=== PATIENT | male | born 1990 | race Caucasian/White ===

== ENCOUNTER 2019-03-10 11:13 | Emergency (ER) | payer OTHER ==
[~2019-03-10] VITALS: Ht 172.7 cm; Wt 92.0 kg
[~2019-03-10 11:13] MED LIST: SULF1TAB31 PO
[2019-03-10 12:05] VITALS: Ht 172.7 cm; Wt 92.0 kg
[2019-03-10] MEDS ORDERED: VANCOMYCIN 1 GM (PMX) 250 ML IVPB ONE (13:30)
[2019-03-10] MEDS ORDERED: CEFTRIAXONE 1 GM/50 ML (PMX) 50 ML IVPB ONE (13:30)
[2019-03-10] MEDS ORDERED: SULF1TAB31 PO (14:02)
[2019-03-10] MEDS ORDERED: CEPH-443 PO (14:02)
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
[2019-03-10 16:27] VITALS: BP 116/56; PULSE 82; RESP 18
== END 2019-03-10 16:28 | disposition home or self-care (01) ==
LOC: FTE 11:13
DX: L03.115 Cellulitis of right lower limb (principal)
CPT/HCPCS: 80053; 85025; 96374; 96375; J0696; J3370; Z7502

== ENCOUNTER 2019-03-14 15:50 | Emergency (ER) | payer OTHER ==
[~2019-03-14] VITALS: Ht 177.8 cm; Wt 88.2 kg
[~2019-03-14 15:50] MED LIST changes: +CEPH-443 PO
[2019-03-14 16:06] VITALS: BP 117/59; PULSE 95; RESP 18; Ht 177.8 cm; Wt 88.2 kg
[2019-03-14] MEDS ORDERED: NAPR-985 PO (18:11)
[2019-03-14] MEDS: KETOROLAC 30 MG INJ IM STA ×2 (18:21→18:28)
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
== END 2019-03-14 18:38 | disposition home or self-care (01) ==
LOC: FTE 15:50
DX: R22.43 Localized swelling, mass and lump, lower limb, bilateral (principal)
CPT/HCPCS: 99282; J1885

== ENCOUNTER 2019-04-07 23:11 | Emergency (ER) | payer OTHER ==
[~2019-04-07] VITALS: Ht 177.8 cm; Wt 90.1 kg
[~2019-04-07 23:11] MED LIST changes: +NAPR-985 PO
[2019-04-07 23:13] VITALS: Ht 177.8 cm; Wt 90.1 kg
[2019-04-08] MEDS ORDERED: SULF1TAB31 PO (03:44)
[2019-04-08] MEDS ORDERED: CLIN300C10 PO (03:44)
[2019-04-08 03:58] VITALS: BP 119/65; PULSE 101; RESP 18
[2019-04-08] MEDS ORDERED: LIDOCAINE 1% (MPF) 5 ML VIAL INFIL ONE (04:00)
[2019-04-08] MEDS ORDERED: CEFTRIAXONE 1 GM INJ IM ONE (04:00)
--- NOTE | 2019-04-08 07:03 | ERD ---
ER Documentation Chief Complaint Chief Complaint RIGHT LEG CELLULITITS; ATB FINISHED HPI 28-year-old male with history of cellulitis and heroin abuse presents to the ED complaining of bilateral lower extremity swelling and redness. Patient states he was seen here on March 10, 2019 for the same complaints. He was started on outpatient antibiotics which he finished. He states his symptoms improved but he started to have swelling and redness again 4 days ago. He denies any associated fevers or chills. Denies any numbness or tingling of his lower extremities. No trauma. No other complaints. ROS All systems reviewed and are negative except as per history of present illness. Medications Home Meds Active Scripts Sulfamethoxazole/Trimethoprim* (Bactrim Ds* Tablet) 1 Each Tablet, 1 TAB PO BID, #14 TAB Prov:BARIIGRSHINANARMANI-C 04/08/19 Clindamycin Hcl* (Clindamycin Hcl*) 300 Mg Capsule, 300 MG PO TID for 7 Days, CAP Prov:ARMANI IVERSON-C 04/08/19 Naproxen* (Naprosyn*) 500 Mg Tablet, 500 MG PO BID PRN for PAIN AND/OR INFLAMMATION, #30 TAB Prov:LUZ LYN-C 03/14/19 Sulfamethoxazole/Trimethoprim* (Bactrim Ds* Tablet) 1 Each Tablet, 1 TAB PO BID, #20 TAB Prov:MUNDO SALAZARC 03/10/19 Cephalexin* (Keflex*) 500 Mg Capsule, 500 MG PO QID for 10 Days, CAP Prov:MUNDO SALAZARC 03/10/19 Sulfamethoxazole/Trimethoprim* (Bactrim Ds* Tablet) 1 Each Tablet, 1 TAB PO BID for 7 Days, #14 TAB Prov:SUDHEER CROCKETT MD 06/28/18 Allergies Allergies: Coded Allergies: No Known Allergy (Unverified , 03/10/19) PMhx/Soc History of Surgery: Yes (Left knee SX, Pelvic fx SX) Anesthesia Reaction: No Hx Neurological Disorder: No Hx Respiratory Disorders: No Hx Cardiac Disorders: No Hx Psychiatric Problems: No Hx Miscellaneous Medical Probl: No Hx Alcohol Use: Yes Hx Substance Use: Yes (meth, heroin ) Hx Tobacco Use: Yes Smoking Status: Current some day smoker Physical Exam Vitals Vital Signs Date Temp Pulse Resp B/P (MAP) Pulse Ox O2 O2 Flow FiO2 Time Delivery Rate 04/08/19 98.8 101 18 119/65 100 Room Air 03:58 (83) 04/07/19 98.5 110 19 140/69 100 23:13 (92) Physical Exam Const: No acute distress Head: Atraumatic Eyes: Normal Conjunctiva ENT: Normal External Ears, Nose and Mouth. Neck: Full range of motion. No meningismus. Ext: + Bilateral lower extremity erythema with 1+ pitting edema, right greater than the left. Right lower extremity with warmth. DP/PT pulses intact. Cap refill less than 2 seconds. Neur: Awake and alert Psych: Normal Mood and Affect Results 24 hrs Current Medications Medications Dose Sig/Collin Start Time Status Last (Trade) Ordered Route PRN Stop Time Admin Dose Reason Admin Ceftriaxone 1 gm ONCE ONCE 04/08/19 DC 04/08/19 Sodium IM 04:00 03:50 (Rocephin) 04/08/19 04:00 Lidocaine 5 ml ONCE ONCE 04/08/19 DC 04/08/19 (Xylocaine INFIL 04:00 03:50 1% (Mpf)) 04/08/19 04:00 Procedures/MDM ED COURSE: The patient was given IM ceftriaxone The medication was well tolerated and the patient had market improvement in symptoms. The patient remained stable throughout ED course. MEDICAL DECISION MAKING: This is a 28-year-old male with history of heroin abuse presents for the second time in 1 month for cellulitis of his bilateral lower extremities. I discussed this case with my supervising physician, Dr. Gu who states patient is stable for outpatient antibiotics. He has no fever here. His vital signs are stable. I have low suspicion for sepsis, osteomyelitis, or deep space tissue infection. He was given IM Rocephin here and discharged home with clindamycin and Bactrim. I recommended follow-up with his regular doctor within the week. Return here for any new or worsening symptoms. PRESCRIPTIONS: Bactrim, clindamycin SPECIALIST FOLLOW UP RECOMMENDED: None Patient has been advised to follow up with primary care in 1-2 days. Departure Diagnosis: Primary Impression: Cellulitis Site of cellulitis: extremity Site of cellulitis of extremity: lower extremity Laterality: unspecified laterality Qualified Codes: L03.119 - Cellulitis of unspecified part of limb Condition: Stable Patient Instructions: Cellulitis Referrals: [facility] YOU HAVE RECEIVED A MEDICAL SCREENING EXAM AND THE RESULTS INDICATE THAT YOU DO NOT HAVE A CONDITION THAT REQUIRES URGENT TREATMENT IN THE EMERGENCY DEPARTMENT. FURTHER EVALUATION AND TREATMENT OF YOUR CONDITION CAN WAIT UNTIL YOU ARE SEEN IN YOUR DOCTORS OFFICE WITHIN THE NEXT 1-2 DAYS. IT IS YOUR RESPONSIBILITY TO MAKE AN APPOINTMENT FOR FOLOW-UP CARE. IF YOU HAVE A PRIMARY DOCTOR --you should call your primary doctor and schedule an appointment IF YOU DO NOT HAVE A PRIMARY DOCTOR YOU CAN CALL OUR PHYSICIAN REFERRAL HOTLINE AT IF YOU CAN NOT AFFORD TO SEE A PHYSICIAN YOU CAN CHOSE FROM THE FOLLOWING [facility] [address] [facility] [address] [facility]. [facility] [address] [facility] [address] [facility] [facility] [address] [facility]. [facility] [address] [facility]. [facility] YOU HAVE RECEIVED A MEDICAL SCREENING EXAM AND THE RESULTS INDICATE THAT YOU DO NOT HAVE A CONDITION THAT REQUIRES URGENT TREATMENT IN THE EMERGENCY DEPARTMENT. FURTHER EVALUATION AND TREATMENT OF YOUR CONDITION CAN WAIT UNTIL YOU ARE SEEN IN YOUR DOCTORS OFFICE WITHIN THE NEXT 1-2 DAYS. IT IS YOUR RESPONSIBILITY TO MAKE AN APPOINTMENT FOR FOLOW-UP CARE. IF YOU HAVE A PRIMARY DOCTOR --you should call your primary doctor and schedule and appointment IF YOU DO NOT HAVE A PRIMARY DOCTOR YOU CAN CALL OUR PHYSICIAN REFERRAL HOTLINE AT . IF YOU CAN NOT AFFORD TO SEE A PHYSICIAN YOU CAN CHOSE FROM THE FOLLOWING [facility]: [facility] [address] [place] [address] [facility] [address] [place] [address] [facility] + [facility] [address] [place] [address] [facility]SPECIALTIES Additional Instructions: Monitor for worsening redness, swelling and pain. Take the full couse of antibiotics. Return here for any new or worsening symptoms. ARMANI IVERSON PA-C April 08, 2019 07:03
== END 2019-04-08 03:59 | disposition home or self-care (01) ==
LOC: FTE 23:11
DX: L03.116 Cellulitis of left lower limb (principal); L03.115 Cellulitis of right lower limb; F17.210 Nicotine dependence, cigarettes, uncomplicated
CPT/HCPCS: 96372; J0696; Z7502; Z7610